=== PATIENT | female | born 1960 | race Caucasian/White ===

== ENCOUNTER 2017-06-04 11:24 | Emergency (ER) | payer OTHER ==
[~2017-06-04] VITALS: Ht 162.6 cm; Wt 88.6 kg
[~2017-06-04 11:24] MED LIST: CALC-112 PO; CELE200C PO; GABA100C PO; GLUC1CAP48 PO; LACT1CAP35 PO; MULT-26 PO; MULT-658 PO; OMEG500C PO; SCOP1PAT11; TRAM50TA2 PO; tumeric PO
[2017-06-04] MEDS ORDERED: KETOROLAC 30 MG/1 ML IM ONE (12:00)
[2017-06-04] MEDS ORDERED: KETOROLAC 30 MG/1 ML ONE (12:09)
[2017-06-04] MEDS ORDERED: LEVO75TA PO (12:44)
[2017-06-04] MEDS ORDERED: estrogen patch (12:44)
[2017-06-04] MEDS ORDERED: PROG200C15 PO (12:44)
[2017-06-04 13:22] VITALS: BP 179/90
== END 2017-06-04 13:25 | disposition home or self-care (01) ==
LOC: ED 13:17
DX: S06.0X0A Concussion without loss of consciousness, initial encounter (principal); S93.402A Sprain of unspecified ligament of left ankle, initial encounter; S00.33XA Contusion of nose, initial encounter; Y93.53 Activity, golf; Y92.39 Other specified sports and athletic area as the place of occurrence of the external cause; Y99.8 Other external cause status; Z91.041 Radiographic dye allergy status
CPT/HCPCS: 70486; 73590; 73610; 96372; 99284; J1885